=== PATIENT | male | born 1950 | race Caucasian/White ===

== ENCOUNTER 2020-03-17 15:03 | Day surgery (SDC) | payer MEDICARE ==
[~2020-03-17 15:03] MED LIST: Glycopyrrolate 0.2 MG/ML 5 ML SYRINGE ONE; Iopamidol-370 76% 500 ML 1 ML ONE; Lidocaine 1% PF 5 ML VIAL ONE; Ondansetron PF 4 MG/2 ML Vial ONE; PROPOFOL 200 MG/20 ML VIAL ONE; Rocuronium Bromide 10 MG/ML (10ML VIAL) ONE; ePHEDrine/0.9% NaCl/PF SYRINGE 50 mg/10 ml ONE
[2020-03-17] MEDS ORDERED: Ketorolac Tromethamine 30 MG/ML VIAL ONE (15:55)
[2020-03-17 16:06] LABS: Bilirubin Negative (Negative); Blood, Urine Negative (Negative); Clarity Turbid (Clear); Glucose, Urine (Dipstick) 200 mg/dL (Negative); Ketone, Urine Trace mg/dL (Negative); Leukocyte 500 Leu/uL (Negative); Mucous/LPF 1+ LPF (<2+); Nitrite 2+ (Negative); Protein, Urine (Dipstick) 20 mg/dL (Neg-Trace); Specific Gravity, Urine 1.021 (1.002-1.036); Squamous Epithelial 0-3 HPF (0-3); Urobilinogen Normal mg/dL (Less than 2); WBC/HPF Greater than 50 HPF (0-3); pH, Urine 7.5 (5.0-9.0)
[2020-03-17 16:14] LABS: Bacteria/HPF Rare-Few HPF (None Seen)
[2020-03-17 16:15] LABS: Yeast-Budding None Seen HPF (None Seen)
[2020-03-17 16:56] LABS: #Basophils 0.1 thou/uL (0.0-0.2); #Eosinphils 0.2 thou/uL (0.0-0.7); #Lymphocytes 2.4 thou/uL (1.20-3.40); #Monocytes 1.3 thou/uL (0.11-0.59); #Neutrophils 11.2 thou/uL (1.40-6.50); %Basophils 0.8 % (0.0-1.0); %Eosinophils 1.5 % (0.0-10.0); %Lymphocytes 15.9 % (21.0-51.0); %Monocytes 8.5 % (0.0-10.0); %Neutrophils 73.3 % (42.0-75.0); Hemoglobin 15.8 g/dL (14.0-18.0); Mean Corpuscular HGB CONC 34.8 g/dL (32.0-36.0); Mean Corpuscular Hemoglobin 30.4 pg (27.0-31.0); Mean Corpuscular Volume 87.3 fL (78.0-98.0); Mean Platelet Volume 8.6 fL (7.4-10.4); Platelet Count 264 thou/uL (130-400); RBC Distribution Width 11.5 % (11.5-14.5); Red Blood Cell (RBC) Count 5.21 mill/uL (4.70-6.10); White Blood Cell (WBC) Count 15.3 thou/uL (4.8-10.8)
[2020-03-17] MEDS ORDERED: Piperacillin/Tazobactam 4.5 GM VIAL ONE (17:14)
[2020-03-17 17:59] LABS: ALT (SGPT) 20 U/L (8-55); AST (SGOT) 24 U/L (5-34); Albumin 4.1 g/dL (3.4-4.8); Alkaline Phosphatase 49 U/L (40-110); Anion Gap 17 mmol/L (10-20); BUN (Urea Nitrogen) 11 mg/dL (8.4-25.7); Bilirubin, Total 0.5 mg/dL (0.2-1.2); Calc. Creatinine Clearance 0 mL/min (70-130); Calcium 8.9 mg/dL (7.8-10.44); Carbon Dioxide 21 mmol/L (23-31); Chloride 101 mmol/L (98-107); Estimated GFR-MDRD Greater than 90; Globulin 3.4 g/dL (2.4-3.5); Glucose 138 mg/dL (80-115); Potassium 4.1 mmol/L (3.5-5.1); Protein, Total 7.5 g/dL (5.8-8.1); Sodium 135 mmol/L (136-145)
--- NOTE | 2020-03-17 18:29 | CT ---
CT ABDOMEN AND PELVIS WITH IV CONTRAST: 03/17/20 PROVIDED CLINICAL HISTORY: Right lower quadrant pain. FINDINGS: The visualized lung bases are free of significant opacity. There is a focal area of hyperenhancement involving the dome of the right liver demonstrating CT feat ures typical for transient hepatic attenuation difference. The solid abdominal organs demonstrate no significant abnormality. There is a dilated, fluid filled appendix with mucosal enhancement and surrounding fat stranding. There is no evidence for bowel obstruction, free fluid, or free air. The prostate gland appears enlarged. Scattered vascular calcifications are seen. The osseous structures demonstrate no concerning lytic or blastic lesions. IMPRESSION: Findings compatible with acute appendicitis. POS: TA
[2020-03-17 20:38] LABS: SARS-CoV-2 NAA Rapid Test Not Detected (NotDetected)
[2020-03-17] MEDS ORDERED: Bupivacaine 0.25% HCL 30 ML VIAL ONE (20:43)
[2020-03-17] MEDS ORDERED: EPINEPHrine 1 MG/ML AMP ONE (20:43)
[2020-03-17] MEDS ORDERED: Fentanyl 100 MCG/2 ML VIAL ONE (20:55)
--- NOTE | 2020-03-17 21:25 | HP ---
CHIEF COMPLAINT: Abdominal pain. HISTORY OF PRESENT ILLNESS: Mr. Estrella is a 69-year-old man with onset of abdominal pain around 3'o clock this morning. He states that initially it was sort of central in location, but then moved to the right side and lower in the abdomen. He had some nausea, but did not vomit. He did not have any fevers or chills. The pain was worse with movement or activities. He called his doctor who advised him to come to the emergency room to be checked for appendicitis. CT of the abdomen and pelvis was positive for appendicitis. PAST MEDICAL HISTORY: Includes type 2 diabetes, well controlled, hyperlipidemia, hypertension, which is well controlled, and BPH. ALLERGIES: SULFA. OUTPATIENT MEDICATIONS: Include: 1. Once a week injection for his diabetes, Ozempic. 2. Lisinopril 10 mg p.o. daily. 3. Amlodipine 10 mg p.o. daily. 4. Flomax. 5. Hydrochlorothiazide 12.5 mg p.o. daily. 6. Subcu Lantus insulin. 7. Rosuvastatin 10 mg p.o. daily. FAMILY HISTORY: Diabetes, hypertension, heart disease and stroke in his father. Mother is 90 and healthy. SOCIAL HISTORY: The patient does drink, but denies tobacco or drug use. 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 REVIEW OF SYSTEMS: Ten system review of systems is negative except per HPI. He is able to walk 2 miles three times a week with his dog without problems. PHYSICAL EXAMINATION: VITAL SIGNS: Patient is afebrile, temperature is 98.3, heart rate 81, respirations 19, 97% saturated on room air, blood pressure 147/82. GENERAL: Reveals a healthy-appearing man, in no acute distress, who appears younger than his stated age. HEENT: Unremarkable. NECK: Supple without lymphadenopathy or thyroid nodules. He is not jaundiced or icteric in appearance. HEART: Regular in its rate and rhythm. He does have a soft systolic murmur, which he has been told is regurgitation based on an echocardiogram. It is in the distribution of the mitral valve and is loud along the left lower sternal border. LUNGS: Clear to auscultation bilaterally. He does not have any pain with inspiration. ABDOMEN: Soft and nondistended. He does not have any palpable hernias or masses. He is tender to palpation in the right lower quadrant, but without rigidity, rebound, or guarding. EXTREMITIES: Warm and well perfused without edema. NEUROLOGIC: No focal deficits. PSYCHIATRIC: Alert, oriented and appropriate. IMAGING DATA: CT images are reviewed and I agree with the written report. The patient has a dilated appendix with periappendiceal stranding. The prostate gland appears enlarged. LABORATORY DATA: White count is elevated at 15.3. Electrolytes are unremarkable. LFTs are normal. Urinalysis positive for ketones and glucose, 2+ nitrites with 500 leukocyte esterase, and greater than 50 white blood cells and rare bacteria. Rapid COVID is negative. ASSESSMENT: Acute appendicitis. We discussed treatment options, which include treatment with antibiotics alone versus laparoscopic appendectomy. Relative pros and cons of each approach were discussed with the patient and family member. Benefits of medical treatment are possible avoidance of surgery, disadvantages are possible recurrence or worsening appendicitis. Benefits of surgery are definitive treatment of appendicitis. Risks are risks of surgery which include, but are not limited to bleeding, infection, risks of anesthesia, damage to nearby structures including bowel, bladder, and blood vessels, need for open surgery, need for other procedures. After considering the options, he has decided to proceed with laparoscopic appendectomy. If his appendix is not perforated, he can likely be discharged home postoperatively. He has received antibiotics in the emergency room and also has a prescription for antibiotics to go home on for a UTI prescribed by the ER physician. Job ID: [id number] MTDD
[2020-03-17] MEDS ORDERED: Piperacillin/Tazobactam 3.375 GM VIAL ONE (22:40)
[2020-03-17] MEDS ORDERED: Acetaminophen 325 MG TAB PO PRN ×2 (22:45→22:46)
[2020-03-17] MEDS ORDERED: Piperacillin/Tazobactam 3.375 GM in Sodium Chloride 0.9% 100 ML IVPB SCH (22:45)
[2020-03-17] MEDS ORDERED: Ibuprofen 200 MG TAB PO PRN ×3 (22:51→22:52)
[2020-03-17] MEDS ORDERED: traMADol HCl 50 MG TAB PO PRN ×2 (23:00)
[2020-03-17] MEDS ORDERED: HYDROcodone/Acetaminophen 5/325 mg Tablet PO PRN ×2 (23:00)
[2020-03-17] MEDS ORDERED: HYDROcodone/Acetaminophen 5/325 mg Tablet ONE (23:30)
--- NOTE | 2020-03-22 14:20 | PDOC.OP ---
Operative Note - Operative Note Operative Note: PROCEDURE: Laparoscopic appendectomy. SURGEON: Sanjay Spangler M.D. DATE OF PROCEDURE: 03/17/2020 PREOPERATIVE DIAGNOSIS: Appendicitis. POSTOPERATIVE DIAGNOSIS: Appendicitis. HISTORY: 69-year-old man who presented with signs and symptoms concerning for appendicitis. CT scan showed evidence of acute appendicitis and he decided to proceed with laparoscopic appendectomy for treatment. FINDINGS: Retrocecal appendix with inflammation of the midsection but normal tip and base. No evidence of perforation. DESCRIPTION OF PROCEDURE: After informed consent was obtained and appropriate antibiotics continued, the patient was taken to the operating room and placed in the supine position and general endotracheal anesthesia was administered. The bladder was decompressed with a Ac catheter and the abdomen was prepped and draped in the standard sterile fashion. Local anesthesia was infused to the skin and subcutaneous tissues superior to the umbilicus. A transverse skin incision was made and a Veress needle placed into the abdominal cavity and carbon dioxide gas insufflated without difficulty. Opening pressure was less than 5. Carbon dioxide gas was insufflated to an intra-abdominal pressure 15 and the patient tolerated this well. The Veress needle was withdrawn and a [place] port advanced under direct laparoscopic vision into the abdominal cavity. Two additional ports were placed in the suprapubic and left lateral abdomen under direct laparoscopic vision after local anesthesia was infused at these sites. There were no significant adhesions anteriorly.. The appendix was identified and appeared inflamed but not perforated. This was in the retrocecal location and the white line of Toldt had to be incised and the cecum rotated medially to expose the appendix. The appendix was grasped by the mesoappendix and elevated. The mesoappendix was then sequentially ligated and divided down to the base of the appendix, which was normal in appearance and was clearly seen to be at the confluence of the tenia. Two Endoloops were placed around the base of the appendix and the appendix was divided between these Endoloops, placed into an EndoCatch bag and drawn out through the suprapubic incision. The suprapubic trocar was then replaced and the operative site was easily irrigated to clear. The suprapubic trocar was removed and the fascia closed under direct laparoscopic vision with a 0 Vicryl suture on a GraNee needle with excellent technical result. The left lateral trocar was then removed and hemostasis verified. Carbon dioxide gas was desufflated through the umbilical trocar which was then removed. The skin incisions were irrigated and additional local anesthesia infused at each site. The fascia at the umbilicus was easily visible within the wound and was closed under direct vision with a 0 Vicryl suture on a UR 6 needle with excellent technical result. The skin was closed with 4-0 subcuticular Monocryl sutures and Dermabond dressings were placed. The patient was extubated and taken to the recovery room in good condition. Estimated blood loss was minimal. There were no complications. SPECIMEN: Appendix.
== END 2020-03-18 00:23 | disposition home or self-care (01) ==
LOC: ERS 15:03 → SDC/OP 21:04
PROVIDERS: ATTEND Surgery
PROC: 0DTJ4ZZ Resection of Appendix, Percutaneous Endoscopic Approach (ICD-10-PCS; principal; 2020-03-17)
DX: K35.33 Acute appendicitis with perforation, localized peritonitis, and gangrene, with abscess (principal); E11.9 Type 2 diabetes mellitus without complications; E78.5 Hyperlipidemia, unspecified; I10 Essential (primary) hypertension; N40.0 Benign prostatic hyperplasia without lower urinary tract symptoms; Z79.4 Long term (current) use of insulin; Z79.899 Other long term (current) drug therapy; Z20.828 Contact with and (suspected) exposure to other viral communicable diseases
CPT/HCPCS: 44970; 74177; 80053; 82962; 83605; 85025; 88304; 93005; 96365; 96375; 99285; U0002; 36415; 36416; 81003; 81015; J0171; J1885; J2405; J2543; J2704; J3010; Q9967; S0020

== ENCOUNTER 2023-09-29 16:20 | Outpatient (CLI) | payer MEDICARE | END 2023-09-29 16:21 | disposition home or self-care (01) | LOC: BICRAD 16:20 | PROVIDERS: ATTEND Family Medicine | DX: M54.41 Lumbago with sciatica, right side (principal); M47.816 Spondylosis without myelopathy or radiculopathy, lumbar region | CPT/HCPCS: 72100 ==

== ENCOUNTER 2023-10-09 14:09 | Outpatient (CLI) | payer MEDICARE | END 2023-10-09 14:10 | disposition home or self-care (01) | LOC: RAD 14:09 | PROVIDERS: ATTEND Family Medicine | DX: M25.551 Pain in right hip (principal) ==